=== PATIENT | male | born 1945 | race Asian ===

== ENCOUNTER 2020-11-22 14:52 | Emergency (ER) | payer MEDICARE ==
[~2020-11-22] VITALS: Ht 185.4 cm; Wt 104.3 kg
--- NOTE | 2020-11-22 15:40 | NUR ---
BIB LOWER BACK PAIN, NOTED DRAINAGE TO SURGICAL SITE BY WOUND NURSE TODAY. PT STS HAD SURGERY 3 WEEKS AGO. RATES PAIN 10/09. WILL CONTINUE TO MONITOR THE PATIENT.
[2020-11-22 16:51] VITALS: BP 137/89
--- NOTE | 2020-11-22 16:51 | NUR ---
Patient discharged to home in stable condition. Written and verbal after care instructions given. Patient verbalizes understanding of instruction.
[2020-11-23] MEDS ORDERED: CARV6.252 PO (07:42)
[2020-11-23] MEDS ORDERED: GABA-532 PO (07:42)
[2020-11-23] MEDS ORDERED: PANT40TA49 PO (07:42)
[2020-11-23] MEDS ORDERED: GLIP1TAB6 PO (07:42)
[2020-11-23] MEDS ORDERED: ANESTHESIA TRAY IN PYXIS 1 EA TRAY MC ONE (11:16)
[2020-11-23] MEDS ORDERED: POLYMYXIN B SULFATE 0 UNITS ONE (11:17)
[2020-11-23] MEDS ORDERED: BUPIVACAINE MPF 0.5% W/EPI INJ 30 ML VIAL ONE (11:17)
[2020-11-23] MEDS ORDERED: LIDOCAINE 1% INJ 50 ML MDV IJ ONE (11:17)
[2020-11-23] MEDS ORDERED: BUPIVACAINE 0.5 % PF 150 MG/30 ML VIAL ONE (12:36)
[2020-11-23] MEDS ORDERED: LIDOCAINE MPF 1%-EPI 1:200,000 30 ML VIAL IJ ONE (13:12)
[2020-11-23] MEDS ORDERED: BACITRACIN ZINC OINT PACKET 1 EA PACKET TP ONE (13:29)
== END 2020-11-22 16:51 | disposition home or self-care (01) ==
LOC: ER 14:56
DX: T81.31XA Disruption of external operation (surgical) wound, not elsewhere classified, initial encounter (principal)
CPT/HCPCS: J3490

== ENCOUNTER 2020-11-22 19:23 | Inpatient (IN) | payer MEDICARE ==
[~2020-11-22] VITALS: Ht 185.4 cm; Wt 82.3 kg
--- NOTE | 2020-11-22 20:37 | NUR ---
CALLED [facility], PAGED [employer] MACHINE [employer] SECR[employer]ARY FOR ADMISSION
--- NOTE | 2020-11-22 20:42 | NUR ---
CALLED OFFICE OF DR BEATTY FOR ADMISSION Addendum: 11/22/20 at 2044 by ISELA ARELIS BEATTY
--- NOTE | 2020-11-22 20:50 | NUR ---
COVID SWAB COLLECTED AND SENT TO LAB
[2020-11-22 20:55] LABS: BASOPHILS % (AUTO) 0.4 % (0.0-2.0); EOSINOPHILS % (AUTO) 1.9 % (0.0-6.0); HEMATOCRIT 37 % (39-51); LYMPHOCYTES # (AUTO) 1.8 K/uL (0.8-4.8); MEAN CORPUSCULAR HGB CONC 33 g/dl (31.0-36.0); MEAN CORPUSCULAR VOLUME 83 fL (80-96); MONOCYTES # (AUTO) 0.7 K/uL (0.1-1.30); NEUTROPHILS % (AUTO) 65.7 % (43.0-81.0); PLATELET COUNT (AUTO) 244 K/uL (150-450); RED BLOOD CELL COUNT(AUTO) 4.42 MIL/uL (4.5-6.0); WHITE BLOOD COUNT (AUTO) 7.7 K/uL (4.3-11.0)
[2020-11-22] MEDS ORDERED: VANCOMYCIN HCL 1.25 GM in IV D5W 260 ML IV ONE (21:00)
[2020-11-22] MEDS ORDERED: PIPERACILLIN /TAZOBACTAM 3.375 G in IV D5W 50 ML IV ONE (21:00)
--- NOTE | 2020-11-22 21:40 | NUR ---
CALLED HOUSE SUP FOR BED
[2020-11-22] MEDS ORDERED: PIPERACILLIN /TAZOBACTAM 3.375 G VIAL IV ONE (21:42)
[2020-11-22 22:01] LABS: ALBUMIN 3.1 g/dL (3.4-5.0); BILIRUBIN,DIRECT 0.1 mg/dL (0.0-0.2); BILIRUBIN,TOTAL 0.3 mg/dL (0.2-1.0); CALCIUM, SERUM 8.8 mg/dL (8.5-10.1); CREATININE 0.7 mg/dL (0.6-1.3); POTASSIUM 4.3 mmol/L (3.5-5.1)
[2020-11-22] MEDS ORDERED: VANCOMYCIN 1 GM VIAL ONE (22:57)
[2020-11-22] MEDS ORDERED: VANCOMYCIN 500 MG VIAL ONE (22:57)
--- NOTE | 2020-11-22 23:02 | NUR ---
REPROT GIVEN TO [facility]
--- NOTE | 2020-11-22 23:45 | NUR ---
PT TRANSFERRED TO 3W IN STABLE CONDITION WILL ALL BELONGINGS WITH PT
[2020-11-22 23:59] VITALS: BP 130/89
[2020-11-23] VITALS: BP 130/89
--- NOTE | 2020-11-23 01:35 | NUR ---
TRANSFER NOTES RECEIVED PATIENT @2350 VIA GURNEY. PT IS AOx4. ABLE TO MAKE NEEDS KNOWN. PT ON ROOM AIR AND TOLERATING WELL. NO SOB NOTED. NO S/SX OF RESPIRATORY DISTRESS NOTED. NO COMPLAINTS OF PAIN AT THIS TIME. IV ACCESS IN CARMEN PICCLINE. IV IS INTACT, PATENT, AND FLUSHING WELL. VITAL SIGNS FOLLOW:97.7 TEMPERATURE, 18 RESPIRATIONS, 99@ O2 SATURATION, 130/89, AND 85 BPM. BELONGINGS ACCOUNTED FOR. SAFETY PRECAUTIONS IN PLACE: BRAKES ON, BED IN LOWEST, LOCKED POSITION, SIDERAILS UP x2. CALL LIGHT AND TABLE WITHIN REACH. WILL CONTINUE TO MONITOR.
[2020-11-23] MEDS ORDERED: ACETAMINOPHEN 325 MG TABLET PO PRN (03:00)
[2020-11-23] MEDS ORDERED: ONDANSETRON HCL/PF 4 MG/2 ML VIAL IV PRN (03:00)
[2020-11-23] MEDS ORDERED: oxyCODONE/APAP (5/325 MG) 1 UDTAB TABLET PO PRN (03:00)
[2020-11-23] MEDS ORDERED: PIPERACILLIN /TAZOBACTAM 3.375 G in IV D5W 50 ML IV SCH ×2 (04:00→12:00)
[2020-11-23] MEDS ORDERED: PIPERACILLIN /TAZOBACTAM 3.375 G VIAL IV ONE (04:40)
--- NOTE | 2020-11-23 06:25 | NUR ---
MS RN CLOSING NOTES PT SLEEPING IN BED, AWAKENS TO VERBAL STIMULI. PT IS AOx4. ABLE TO MAKE NEEDS KNOWN. PT ON ROOM AIR AND TOLERATING WELL. NO SOB NOTED. NO S/SX OF RESPIRATORY DISTRESS NOTED. NO COMPLAINTS OF PAIN AT THIS TIME. IV ACCESS IN CARMEN PICCLINE. IV IS INTACT, PATENT, AND FLUSHING WELL. NO COMPLAINTS OF PAIN THROUGHOUT SHIFT. ALL NEEDS MET. PT KEPT CLEAN AND DRY. SAFETY PRECAUTIONS IN PLACE: BRAKES ON, BED IN LOWEST, LOCKED POSITION, SIDERAILS UP x2. CALL LIGHT AND TABLE WITHIN REACH. WILL ENDORSE TO ONCOMING SHIFT.
[2020-11-23 06:40] LABS: BASOPHILS % (AUTO) 0.5 % (0.0-2.0); EOSINOPHILS % (AUTO) 2.8 % (0.0-6.0); HEMATOCRIT 34 % (39-51); HEMOGLOBIN 11.4 g/dL (13.5-17.5); LYMPHOCYTES # (AUTO) 1.5 K/uL (0.8-4.8); LYMPHOCYTES % (AUTO) 22.7 % (20.0-44.0); MEAN CORPUSCULAR HGB CONC 33 g/dl (31.0-36.0); MEAN CORPUSCULAR VOLUME 84 fL (80-96); MONOCYTES # (AUTO) 0.7 K/uL (0.1-1.30); NEUTROPHILS # (AUTO) 4.1 K/uL (1.8-8.9); PLATELET COUNT (AUTO) 247 K/uL (150-450); RED BLOOD CELL COUNT(AUTO) 4.07 MIL/uL (4.5-6.0); WHITE BLOOD COUNT (AUTO) 6.5 K/uL (4.3-11.0)
[2020-11-23 07:05] LABS: CALCIUM, SERUM 8.7 mg/dL (8.5-10.1); CREATININE 0.6 mg/dL (0.6-1.3); MAGNESIUM 1.8 mg/dL (1.8-2.4); POTASSIUM 3.7 mmol/L (3.5-5.1)
[2020-11-23] MEDS ORDERED: PANTOPRAZOLE 40 MG TABLET.DR PO SCH (07:30)
[2020-11-23] MEDS ORDERED: BLOOD SUGAR DIAGNOSTIC 1 EACH STRIP IN SCH (07:30)
[2020-11-23] MEDS ORDERED: CARV6.252 PO (07:42)
[2020-11-23] MEDS ORDERED: GABA-532 PO (07:42)
[2020-11-23] MEDS ORDERED: GLIP1TAB6 PO (07:42)
[2020-11-23] MEDS ORDERED: PANT40TA49 PO (07:42)
--- NOTE | 2020-11-23 08:00 | NUR ---
m/s seconds inspector: notes check with o.r. staff if pt is schedule for surgery and pt wasn't scheduled today as stated. pt made aware.
[2020-11-23 08:26] VITALS: BP 154/77
[2020-11-23] MEDS: BLOOD SUGAR DIAGNOSTIC 1 EACH STRIP IN SCH ×3 (08:59→17:10)
[2020-11-23] MEDS ORDERED: DEXTROSE 50%-WATER 50 ML DISP.SYRIN IV PRN (09:00)
--- NOTE | 2020-11-23 09:30 | NUR ---
m/s associate sales representative: neuro surgeon f/u dr. delgado at bedside and aware that pt had breakfast. md verbalized frustration about pt had breakfast. informed md pt wasn't scheduled for o.r. today per o.r. team. md wants to schedule for later and to keep pt npo. pt verbalized understanding.
[2020-11-23] MEDS ORDERED: PIPERACILLIN /TAZOBACTAM 3.375 G in IV D5W 100 ML IV SCH (10:00)
[2020-11-23] MEDS ORDERED: VANCOMYCIN 1.25 GM in IV D5W 250 ML IV SCH (11:00)
--- NOTE | 2020-11-23 11:00 | NUR ---
m/s charging crane operator: notes visiting. pt remains npo since 0900. will continue to monitor.
[2020-11-23] MEDS: INSULIN REGULAR, HUMAN 100 UNIT/ML 3 ML VIAL SQ PRN ×2 (11:32→14:36)
--- NOTE | 2020-11-23 11:37 | NUR ---
m/s assembly line driver: notes o.r. team here and informed me that dr. delgado will do the surgery with local anesthesia. pt verbalized understandings and signed the consents. at bedside. will continue to monitor.
--- NOTE | 2020-11-23 11:55 | NUR ---
m/s fine artist: notes picked up via bed at this time accompanied by o.r. team and .
--- NOTE | 2020-11-23 12:00 | NUR ---
m/s jina: visit dr. han here, however his pt is in the o.r.
[2020-11-23] MEDS ORDERED: VANCOMYCIN 1 GM VIAL ONE (13:03)
[2020-11-23 14:10] VITALS: BP 144/66
--- NOTE | 2020-11-23 14:10 | NUR ---
m/s glass mechanic: post op received pt from recovery room with dx: s/p i & d to lumbar wound with local anesthesia. pt awake, a/ox4. dressing to lower back in place. unable to assess due to unremovable dressing and post op i & d. at bedside. vss, afebrile. pt wants to go home. dr. delgado will call dr. han for updates and in regards of going home or staying. pt made aware.
[2020-11-23] MEDS: GABAPENTIN 100 MG CAPSULE PO SCH ×2 (14:33→17:10)
--- NOTE | 2020-11-23 15:30 | NUR ---
m/s motor scooter mechanic: notes dr. han plan to discharge pt home today, pt made aware. md will put the order later as stated. will continue to monitor.
[2020-11-23 16:23] VITALS: BP 139/73
--- NOTE | 2020-11-23 16:30 | NUR ---
m/s golf club head inspector: id f/u eduardo (golf club assembler) at bedside and spoke to pt. per eduardo pt to continue his rocephin iv at home and to follow up with wound culture with dr. han. pt verbalized understanding. still awaiting for dr. han to insert the discharge order. left and to come back later.
[2020-11-23] MEDS ORDERED: glipiZIDE 5 MG TABLET PO SCH (17:00)
[2020-11-23] MEDS ORDERED: METFORMIN 500 MG TABLET PO SCH (17:00)
[2020-11-23] MEDS ORDERED: CARVEDILOL 6.25 MG TABLET PO SCH (17:00)
[2020-11-23] MEDS ORDERED: Medication Not On Formulary EA (Glipizide/Metformin Hcl (Glipizide-Metformin 5-500 Mg) 1 PO SCH (17:00)
--- NOTE | 2020-11-23 17:00 | NUR ---
m/lele muro: notes received discharge order home from dr. han. pt made aware and called his to come to pick him up. discharge instructions given to pt and verbalized understanding. pt has one more week of rocephin at home to finish up. pt will follow up with dr. han in one week as stated. Addendum: 11/23/20 at 1812 by ELSI MOSES LVN unable to take phone on lower back due to s/p i & d. surgical dressing in place.
[2020-11-23 17:10] VITALS: BP 139/73
--- NOTE | 2020-11-23 18:05 | NUR ---
m/s assistant designer: notes discharge home in stable condition accompanied by via private car with all valuables and d'c papers.
[2020-11-24] MEDS ORDERED: PANTOPRAZOLE 40 MG TABLET.DR PO SCH (09:00)
== END 2020-11-23 18:05 | disposition home or self-care (01) | DRG 909 ==
LOC: ER 19:29 → MED 23:06
PROVIDERS: ADMIT Legal Medicine; ATTEND Legal Medicine
PROC: 0KBG0ZZ Excision of Left Trunk Muscle, Open Approach (ICD-10-PCS; principal; 2020-11-23)
PROC: 0KBF0ZZ Excision of Right Trunk Muscle, Open Approach (ICD-10-PCS; 2020-11-23)
DX: T81.31XA Disruption of external operation (surgical) wound, not elsewhere classified, initial encounter (principal); Y83.8 Other surgical procedures as the cause of abnormal reaction of the patient, or of later complication, without mention of misadventure at the time of the procedure; Y92.009 Unspecified place in unspecified non-institutional (private) residence as the place of occurrence of the external cause; E11.9 Type 2 diabetes mellitus without complications; Z20.822 Contact with and (suspected) exposure to COVID-19; I25.10 Atherosclerotic heart disease of native coronary artery without angina pectoris; I10 Essential (primary) hypertension; Z86.14 Personal history of Methicillin resistant Staphylococcus aureus infection; M19.90 Unspecified osteoarthritis, unspecified site; G89.29 Other chronic pain; Z79.84 Long term (current) use of oral hypoglycemic drugs
CPT/HCPCS: 36415; 80048-TC; 80076-TC; 82962-TC; 83735-TC; 85025-TC; 85610-TC; 85730-TC; 87070-TC; 87081-TC; 87186-TC; A6209; A6253; C9803; G0378; J0690; J1815; J2543; J3370; J3490; J7050; J7060

== ENCOUNTER 2023-10-26 09:13 | Day surgery (SDC) | payer MEDICARE ==
[2023-10-26] VITALS (12 sets, daily range): BP systolic 128–149; BP diastolic 58–74; TEMP 98.1; O2SAT 96–99
[~2023-10-26] VITALS: Ht 185.4 cm; Wt 98.0 kg
[~2023-10-26 09:13] MED LIST: CARV6.252 PO; GABA-532 PO; GLIP1TAB6 PO; PANT40TA49 PO
[2023-10-26 10:12] LABS: BASOPHILS # (AUTO) 0.1 K/uL (0.0-0.2); BASOPHILS % (AUTO) 0.6 % (0.0-2.0); EOSINOPHILS # (AUTO) 0.2 K/uL (0.0-0.7); EOSINOPHILS % (AUTO) 2.8 % (0.0-6.0); HEMATOCRIT 36 % (39-51); LYMPHOCYTES # (AUTO) 1.3 K/uL (0.8-4.8); LYMPHOCYTES % (AUTO) 15.5 % (20.0-44.0); MEAN CORPUSCULAR HEMOGLOBIN 28 PG (26.0-33.0); MEAN CORPUSCULAR HGB CONC 34 g/dl (31.0-36.0); MEAN CORPUSCULAR VOLUME 82 fL (80-96); MONOCYTES # (AUTO) 0.7 K/uL (0.1-1.30); MONOCYTES % (AUTO) 8.5 % (2.0-12.0); NEUTROPHILS # (AUTO) 6.2 K/uL (1.8-8.9); NEUTROPHILS % (AUTO) 72.6 % (43.0-81.0); PLATELET COUNT (AUTO) 282 K/uL (150-450); RED BLOOD CELL COUNT(AUTO) 4.34 MIL/uL (4.5-6.0); RED CELL DISTRIBUTION WIDTH 15.2 % (11.5-15.0); WHITE BLOOD COUNT (AUTO) 8.6 K/uL (4.3-11.0)
[2023-10-26] MEDS ORDERED: IV NS 0.9% 1,000 ML ONE (10:24)
[2023-10-26] MEDS ORDERED: IV SET PRIMARY PUMP SET 1 EA INFUS.SET MC ONE ×2 (10:24→12:15)
[2023-10-26] MEDS ORDERED: IODIXANOL 150 ML IV ONE (10:25)
[2023-10-26 10:33] LABS: INR 1.23 (0.91-1.10); PROTHROMBIN TIME 12.9 SECS (9.2-11.1)
[2023-10-26 10:40] LABS: ALANINE AMINOTRANSFERASE 17 U/L (12-78); ALBUMIN 3.5 g/dL (3.4-5.0); ALKALINE PHOSPHATASE 114 U/L (46-116); ASPARTATE AMINOTRANSFERASE 14 U/L (15-37); BILIRUBIN,TOTAL 0.5 mg/dL (0.2-1.0); CARBON DIOXIDE 25 mmol/L (21-32); CHLORIDE 100 mmol/L (98-107); CREATININE 1.4 mg/dL (0.6-1.3); GLUCOSE 132 mg/dL (74-106); SODIUM SERUM 136 mmol/L (136-145); TOTAL PROTEIN, SERUM 8.3 g/dL (6.4-8.2); UREA NITROGEN, BLOOD 31 mg/dL (7-18)
[2023-10-26] MEDS ORDERED: LIDOCAINE HCL/MPF 1% 30 ML VIAL IJ ONE (11:23)
[2023-10-26] MEDS ORDERED: MIDAZOLAM HCL 2 MG/2ML VIAL ONE (11:36)
[2023-10-26] MEDS ORDERED: FENTANYL PF 100MCG/2ML AMPUL ONE (11:36)
[2023-10-26] MEDS ORDERED: HEPARIN SODIUM, PORCINE 1,000 UNIT/ML VIAL ONE (12:08)
[2023-10-26] MEDS ORDERED: HEPARIN SODIUM, PORCINE 5000 UNITS/1 ML VIAL ONE (12:08)
[2023-10-26] MEDS ORDERED: IODIXANOL 320MG/ML 50 ML IV ONE (12:37)
[2023-10-26] MEDS: CEFAZOLIN 2 GM in IV D5W 100 ML IV ONE (14:20)
[2023-10-26] MEDS ORDERED: CHOL100043 PO (17:43)
[2023-10-26] MEDS ORDERED: FURO40TA5 PO (17:43)
[2023-10-26] MEDS ORDERED: RIVA15TA PO (17:43)
[2023-10-26] MEDS ORDERED: METO25TA4 PO (17:43)
== END 2023-10-26 19:00 | disposition home or self-care (01) ==
LOC: CATHLAB 09:13 → UNDOADMIN 13:45 → ICU 13:45 → UNDODISIN 17:55 → CATHLAB 19:00
PROVIDERS: ATTEND Surgery Vascular Surgery
DX: E11.51 Type 2 diabetes mellitus with diabetic peripheral angiopathy without gangrene (principal); I25.10 Atherosclerotic heart disease of native coronary artery without angina pectoris; I10 Essential (primary) hypertension; I48.91 Unspecified atrial fibrillation; L03.031 Cellulitis of right toe; Z79.01 Long term (current) use of anticoagulants; Z79.82 Long term (current) use of aspirin; Z79.84 Long term (current) use of oral hypoglycemic drugs; Z79.899 Other long term (current) drug therapy; Z95.1 Presence of aortocoronary bypass graft
CPT/HCPCS: 37225; 71045; 93005; 85025; 85610; 36415; 80053; 75625; 75710; 99153; 99152; J0690; J3010; J1644 ×4; C1714; J7060; J7030; J2250; C1725 ×2; J3490; A4223; Q9967; C1769; C1894; C1887 ×2; 36245; G0378; G0500

== ENCOUNTER 2023-11-03 08:55 | Outpatient (CLI) | payer MEDICARE ==
[~2023-11-03 08:55] MED LIST changes: -CARV6.252 PO; +CHOL100043 PO; +FURO40TA5 PO; -GABA-532 PO; +METO25TA4 PO; -PANT40TA49 PO; +RIVA15TA PO
== END 2023-11-03 23:59 | disposition home health service (06) ==
LOC: WOU 08:55
PROVIDERS: ATTEND Podiatrist Foot & Ankle Surgery
DX: E11.621 Type 2 diabetes mellitus with foot ulcer (principal); L97.512 Non-pressure chronic ulcer of other part of right foot with fat layer exposed; L60.2 Onychogryphosis; Z79.01 Long term (current) use of anticoagulants
CPT/HCPCS: 11042; A6209

== ENCOUNTER 2024-12-02 10:38 | Outpatient (CLI) | payer MEDICARE | END 2024-12-02 23:59 | disposition home health service (06) | LOC: WOU 10:38 | PROVIDERS: ATTEND Podiatrist Foot & Ankle Surgery | DX: E11.621 Type 2 diabetes mellitus with foot ulcer (principal); L97.512 Non-pressure chronic ulcer of other part of right foot with fat layer exposed; L84 Corns and callosities; M20.21 Hallux rigidus, right foot; I10 Essential (primary) hypertension; I48.91 Unspecified atrial fibrillation; Z79.01 Long term (current) use of anticoagulants; Z51.89 Encounter for other specified aftercare | CPT/HCPCS: 11042; A4649 ==

== ENCOUNTER 2025-01-31 10:20 | Outpatient (CLI) | payer MEDICARE | END 2025-01-31 23:59 | disposition home health service (06) | LOC: WOU 10:20 | PROVIDERS: ATTEND Podiatrist Foot & Ankle Surgery | DX: E11.621 Type 2 diabetes mellitus with foot ulcer (principal); L97.512 Non-pressure chronic ulcer of other part of right foot with fat layer exposed; Z79.84 Long term (current) use of oral hypoglycemic drugs; M20.21 Hallux rigidus, right foot; L84 Corns and callosities; I10 Essential (primary) hypertension; I48.91 Unspecified atrial fibrillation; Z79.01 Long term (current) use of anticoagulants | CPT/HCPCS: 11042; A4649 ==